=== PATIENT | female | born 1995 | race Caucasian/White ===

== ENCOUNTER 2017-01-22 14:29 | Outpatient (CLI) | payer BC ==
[~2017-01-22] VITALS: Ht 160 cm; Wt 69.1 kg
== END 2017-01-22 16:36 | disposition home or self-care (01) ==
LOC: LDOP 14:29
PROVIDERS: ATTEND Student in an Organized Health Care Education/Training Program
DX: O26.893 Other specified pregnancy related conditions, third trimester (principal); R10.9 Unspecified abdominal pain; Z3A.35 35 weeks gestation of pregnancy
CPT/HCPCS: 59025; 81001; 87086; 99211; G0463

== ENCOUNTER 2017-01-31 18:06 | Observation (INO) | payer BC ==
[~2017-01-31] VITALS: Ht 160 cm; Wt 71.8 kg
[2017-01-31 18:59] VITALS: BP 118/64
[2017-01-31 21:05] LABS: HEMATOCRIT 36.7 % (34.6-47.8); HEMOGLOBIN 12.2 g/dL (11.7-16.4); WHITE BLOOD COUNT 11.9 x10^3/uL (3.4-10)
[2017-01-31 21:10] LABS: BLOOD UREA NITROGEN 7 mg/dL (7-18)
[2017-01-31 21:13] LABS: ASPARTATE AMINO TRANSFERASE 17 U/L (15-37)
== END 2017-01-31 22:20 | disposition home or self-care (01) ==
LOC: LDOP 18:06 → LDIP 21:07
PROVIDERS: ADMIT Student in an Organized Health Care Education/Training Program; ATTEND Student in an Organized Health Care Education/Training Program
DX: O62.9 Abnormality of forces of labor, unspecified (principal); O26.893 Other specified pregnancy related conditions, third trimester; R10.9 Unspecified abdominal pain; Z3A.36 36 weeks gestation of pregnancy
CPT/HCPCS: 36415; 59025; 80053; 81001; 82150; 83690; 85025; 87086; 99211; G0378; G0463

== ENCOUNTER 2017-02-17 12:33 | Inpatient (IN) | payer BC ==
[~2017-02-17] VITALS: Ht 157.5 cm; Wt 72.7 kg
[2017-02-17 13:10] VITALS: BP 125/74
[2017-02-17] MEDS ORDERED: PREN1TAB60 PO (13:26)
[2017-02-17] MEDS ORDERED: OXYTOCIN 30U/ 0.9% NaCL 500ML 500 ML IV ONE (14:07)
[2017-02-17] MEDS ORDERED: OXYTOCIN 30U/ 0.9% NaCL 500ML 500 ML IV PRN (14:07)
[2017-02-17] MEDS ORDERED: D5%-LACTATED RINGERS 1,000 ML IV SCH (14:07)
[2017-02-17] MEDS ORDERED: LACTATED RINGERS 1,000 ML IV SCH ×2 (14:07→17:34)
[2017-02-17] MEDS ORDERED: ONDANSETRON 2MG/ML, 2ML IVPush PRN (14:30)
[2017-02-17] MEDS ORDERED: TERBUTALINE 1 MG/ML, 1ML SQ PRN (14:30)
[2017-02-17] MEDS ORDERED: TERBUTALINE 1 MG/ML, 1ML IVPush PRN (14:30)
[2017-02-17] MEDS ORDERED: FENTANYL PF 100 MCG/2ML IV PRN (14:30)
[2017-02-17 14:41] LABS: HEMOGLOBIN 12.7 g/dL (11.7-16.4); WHITE BLOOD COUNT 12.4 x10^3/uL (3.4-10)
[2017-02-17] MEDS ORDERED: NEWBORN KIT ONE ×2 (14:50→18:51)
[2017-02-17] MEDS ORDERED: MISOPROSTOL 200 MCG TABLET ONE (14:51)
[2017-02-17] MEDS ORDERED: LIDOCAINE 1%, 20ML ONE (14:51)
[2017-02-17] MEDS ORDERED: OXYTOCIN 30U/ 0.9% NaCL 500ML 500 ML ONE (14:51)
[2017-02-17] MEDS ORDERED: FENTANYL PF 100 MCG/2ML ONE ×2 (16:20→17:22)
[2017-02-17] MEDS: FENTANYL PF 100 MCG/2ML IVPush PRN ×2 (16:25→17:30)
[2017-02-17] MEDS ORDERED: OXYTOCIN 30U/ 0.9% NaCL 500ML 500 ML IV SCH (17:34)
[2017-02-17] MEDS ORDERED: SODIUM CITRATE/CITRIC ACID 30 ML UDC ONE (17:41)
[2017-02-17] MEDS ORDERED: METOCLOPRAMIDE 5 MG/ML, 2ML ONE ×2 (17:41→17:58)
[2017-02-17] MEDS ORDERED: CEFAZOLIN 1,000 MG ONE (17:58)
[2017-02-17] MEDS ORDERED: OXYTOCIN 10 UNITS/ML, 1ML ONE (17:58)
[2017-02-17] MEDS ORDERED: LACTATED RINGERS 1,000 ML IVBOLUS ONE (18:00)
[2017-02-17] MEDS ORDERED: SODIUM CITRATE/CITRIC ACID 30 ML UDC PO PRN (18:30)
[2017-02-17] MEDS ORDERED: METOCLOPRAMIDE 5 MG/ML, 2ML IVPush PRN (18:30)
[2017-02-17] MEDS ORDERED: OXYcodone 5 MG/5 ML ORAL.SOL UDC ONE (19:24)
[2017-02-17] MEDS ORDERED: OXYcodone 5 MG/5 ML ORAL.SOL UDC PO PRN (20:00)
[2017-02-17 20:50] VITALS: BP 106/84
[2017-02-17] MEDS: LACTATED RINGERS 1,000 ML IV SCH ×2 (21:04)
[2017-02-17] MEDS: OXYTOCIN 30U/ 0.9% NaCL 500ML 500 ML IV SCH (21:04)
[2017-02-17] MEDS ORDERED: ONDANSETRON 2MG/ML, 2ML IV PRN (21:30)
[2017-02-17] MEDS ORDERED: OXYC-302 PO (22:35)
[2017-02-17] MEDS ORDERED: IBUP-1223 PO (22:38)
[2017-02-17] MEDS ORDERED: DOCU-131 PO (22:38)
[2017-02-18 00:25] VITALS: BP 116/64
[2017-02-18] MEDS: OXYcodone/APAP 5/325MG TABLET PO PRN ×6 (00:33→18:58)
[2017-02-18 03:38] LABS: HEMATOCRIT 30.9 % (34.6-47.8); HEMOGLOBIN 10.5 g/dL (11.7-16.4); WHITE BLOOD COUNT 13.2 x10^3/uL (3.4-10)
[2017-02-18] MEDS: IBUPROFEN 600 MG TABLET PO PRN ×3 (04:19→18:58)
[2017-02-18 04:20] VITALS: BP 109/70
[2017-02-18] MEDS: LACTATED RINGERS 1,000 ML IV SCH ×5 (05:04→21:04)
[2017-02-18] MEDS ORDERED: KETOROLAC 30 MG/1 ML IVPush PRN (06:00)
[2017-02-18] MEDS: OXYTOCIN 30U/ 0.9% NaCL 500ML 500 ML IV SCH ×2 (07:04→19:55)
[2017-02-18 07:30] VITALS: BP 115/67
[2017-02-18] MEDS: PRENATAL VIT/IRON/FA 1 EACH TABLET PO SCH (08:24)
[2017-02-18 19:55] VITALS: BP 107/69
[2017-02-19] MEDS: OXYcodone/APAP 5/325MG TABLET PO PRN ×4 (00:48→14:33)
[2017-02-19] MEDS: IBUPROFEN 600 MG TABLET PO PRN ×3 (00:48→14:33)
[2017-02-19] MEDS: OXYTOCIN 30U/ 0.9% NaCL 500ML 500 ML IV SCH (03:04)
[2017-02-19] MEDS: LACTATED RINGERS 1,000 ML IV SCH ×2 (03:04→05:04)
[2017-02-19 07:05] VITALS: BP 113/72
[2017-02-19] MEDS: PRENATAL VIT/IRON/FA 1 EACH TABLET PO SCH (07:14)
[2017-02-19] MEDS ORDERED: FERR325T23 PO (13:31)
== END 2017-02-19 14:37 | disposition home or self-care (01) | DRG 766 ==
LOC: LDOP 12:33 → LDIP 14:07 → 2NW 20:28
PROVIDERS: ADMIT Student in an Organized Health Care Education/Training Program; ATTEND Student in an Organized Health Care Education/Training Program
PROC: 10D00Z1 Extraction of Products of Conception, Low, Open Approach (ICD-10-PCS; principal; 2017-02-17)
DX: O32.1XX0 Maternal care for breech presentation, not applicable or unspecified (principal); O76 Abnormality in fetal heart rate and rhythm complicating labor and delivery; Z91.410 Personal history of adult physical and sexual abuse; Z37.0 Single live birth; Z3A.38 38 weeks gestation of pregnancy
CPT/HCPCS: 36415; 85025; 86850; 86900; 89060; J0690; J3010; J2590; J2765; J7120; Q0114

== ENCOUNTER 2017-07-11 17:38 | Emergency (ER) | payer BC ==
[~2017-07-11] VITALS: Ht 165.1 cm; Wt 61.0 kg
[~2017-07-11 17:38] MED LIST: DOCU-131 PO; FERR325T23 PO; IBUP-1223 PO; OXYC-302 PO; PREN1TAB60 PO
[2017-07-11 17:41] VITALS: BP 133/73
[2017-07-11] MEDS ORDERED: HYDROcodone/APAP 5/325 TABLET PO STA (18:30)
[2017-07-11] MEDS ORDERED: HYDROcodone/APAP 5/325 TABLET ONE (19:04)
== END 2017-07-11 19:03 | disposition home or self-care (01) ==
LOC: ED 18:39
DX: H66.001 Acute suppurative otitis media without spontaneous rupture of ear drum, right ear (principal); H60.91 Unspecified otitis externa, right ear; Z88.0 Allergy status to penicillin
CPT/HCPCS: 99283